=== PATIENT | female | born 1955 | race Caucasian/White ===

== ENCOUNTER 2017-08-30 21:08 | Emergency (ER) | payer OTHER ==
[2017-08-30] MEDS ORDERED: HYDROmorphone 1 MG/ML Syringe IM ONE (22:19)
--- NOTE | 2017-08-30 22:36 | EDM.PDOC ---
ED HPI GENERAL MEDICAL PROBLEM - General Chief Complaint: Lower Extremity Injury/Pain Stated Complaint: FELL HURT LEG Time Seen by Provider: 08/30/17 21:55 Source of Information: Reports: Patient History Limitations: Reports: No Limitations - History of Present Illness INITIAL COMMENTS - FREE TEXT/NARRATIVE: 62-year-old female was going down some stairs tonight when she stumbled and turned her left leg underneath her scraping the anterior lower leg and injuring her ankle. She is unable to bear weight on the left leg and has significant pain through the ankle and also the anterior lower leg. No other significant injury. 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: - Past Surgical History HEENT Surgical History: Reports: Cataract Surgery Musculoskeletal Surgical History: Reports: Arthroscopic Knee, Other (See Below) Other Musculoskeletal Surgeries/Procedures:: l foot surgery Social & Family History - Tobacco Use Smoking Status *Q: Never Smoker Second Hand Smoke Exposure: No - Caffeine Use Caffeine Use: Reports: Coffee, Soda, Tea - Alcohol Use Days Per Week of Alcohol Use: 0 - Recreational Drug Use Recreational Drug Use: No Review of Systems - Review of Systems Review Of Systems: See Below Respiratory: Reports: No Symptoms Cardiovascular: Reports: No Symptoms GI/Abdominal: Reports: No Symptoms Skin: Reports: Other (Abrasions over the anterior lower legs, a very small spot on the right knee, a rather large abraded area on the anterior lower left leg) Neurological: Denies: Paresthesia Psychiatric: Reports: No Symptoms ED EXAM, GENERAL - Physical Exam Exam: See Below Exam Limited By: No Limitations General Appearance: Alert, Mild Distress (Fairly uncomfortable) Head: Atraumatic Respiratory/Chest: No Respiratory Distress Extremities: Other (Patient has a superficial abrasion on the anterior tibial area of the left lower leg. She has swelling, early ecchymosis and tenderness to palpation over the lateral malleolus. She also has a very small abrasion on the anterior aspect of the right knee.) Course - Vital Signs Last Recorded V/S: Last Vital Signs Temp 97.3 F 08/30/17 23:00 Pulse 64 08/30/17 23:00 Resp 16 08/30/17 23:00 BP 127/64 08/30/17 23:00 Pulse Ox 97 08/30/17 23:00 - Orders/Labs/Meds Orders: Active Orders 24 hr Category Date Time Status Vaccines to be Administered [RC] PER UNIT ROUTINE Care 08/30/17 22:39 Active Ankle Min 3V Lt [CR] Stat Exams 08/30/17 21:50 Taken Tibia Fibula Lt [CR] Stat Exams 08/30/17 21:50 Taken DME for Discharge [COMM] Stat Oth 08/30/17 22:38 Ordered Meds: Medications Discontinued Medications Generic Name Dose Route Start Last Admin Trade Name Wally PRN Reason Stop Dose Admin Diphtheria/Tetanus/Acell Pertussis 0.5 ml 08/30/17 22:38 08/30/17 22:47 Adacel IM 08/30/17 22:39 0.5 ml .ONCE ONE Administration Hydromorphone HCl 1 mg 08/30/17 22:19 08/30/17 22:24 Dilaudid IM 08/30/17 22:20 1 mg ONETIME ONE Administration - Re-Assessments/Exams Free Text/Narrative Re-Assessment/Exam: 08/30/17 22:41 An x-ray was obtained that confirmed a spiral fracture of the distal fibula, mild displacement. She was given 1 mg of IM Dilaudid, then the wound was cleaned , dressed, she was placed in a Cam Walker and fitted for crutches. Copies of the x-rays were supplied to the patient. 08/30/17 23:09 Patient tolerated the Cam Walker well. She was discharged with 15 doses of Percocet for extra pain control and will recheck with orthopedics on Saturday or Saturday. Departure - Departure Time of Disposition: 23:35 Disposition: Home, Self-Care 01 Condition: Fair Clinical Impression: Fracture of distal fibula Qualifiers: Encounter type: initial encounter Fracture type: closed Fracture morphology: other fracture Laterality: left Qualified Code(s): S82.832A - Other fracture of upper and lower end of left fibula, initial encounter for closed fracture - Discharge Information Instructions: Ankle Fracture, [id number] Referrals: PCP,None [Primary Care Provider] - Forms: ED Department Discharge Care Plan Goals: Keep boot on and limit weightbearing with the help of the crutches until seen by orthopedics as soon as possible next week. Elevate foot when able, and take x -ray with you to recheck. - My Orders Last 24 Hours: My Active Orders 08/30/17 21:50 Ankle Min 3V Lt [CR] Stat Tibia Fibula Lt [CR] Stat 08/30/17 22:38 DME for Discharge [COMM] Stat 08/30/17 22:39 Vaccines to be Administered [RC] PER UNIT ROUTINE - Assessment/Plan Last 24 Hours: My Active Orders 08/30/17 21:50 Ankle Min 3V Lt [CR] Stat Tibia Fibula Lt [CR] Stat 08/30/17 22:38 DME for Discharge [COMM] Stat 08/30/17 22:39 Vaccines to be Administered [RC] PER UNIT ROUTINE
[2017-08-30] MEDS ORDERED: Diphtheria,Pertussis(Acell),Tetanus Vaccine 0.5 ML SDV IM ONE (22:38)
--- NOTE | 2017-09-02 08:57 | CR ---
Tibia Fibula Lt HISTORY: Injury, fall. COMPARISON: None FINDINGS: Tiny benign exostosis off the medial metaphyseal region of the tibia measuring 5 to 6 mm on the frontal projection. There is oblique fracture of the very distal shaft of the fibula please see ankle report. The proximal and mid tibia and fibula appear intact.
--- NOTE | 2017-09-02 08:59 | CR ---
Ankle Min 3V Lt HISTORY: Pain COMPARISON: None FINDINGS: Oblique fracture of the very distal shaft of the fibula extending above the tibiotalar join t. The medial malleolus and posterior malleolus appear intact. Small exostosis from the medial malleo miko measuring 1 cm. Moderate spurring at the inferior and posterior margin of the calcaneus. Impression: Minimally displaced oblique fracture distal shaft of the fibula.
== END 2017-08-30 23:35 | disposition home or self-care (01) ==
LOC: JP.ED 21:08
DX: S82.832A Other fracture of upper and lower end of left fibula, initial encounter for closed fracture (principal); S80.12XA Contusion of left lower leg, initial encounter; S80.812A Abrasion, left lower leg, initial encounter; Z23 Encounter for immunization; Z88.2 Allergy status to sulfonamides; W10.9XXA Fall (on) (from) unspecified stairs and steps, initial encounter
CPT/HCPCS: 73590; 73610; 90471; 90715; 96372; 99284; J1170